=== PATIENT | male | born 2000 | race Caucasian/White ===

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

== ENCOUNTER 2022-04-29 11:43 | Emergency (ER) | payer SELFPAY ==
[~2022-04-29] VITALS: Ht 175.3 cm; Wt 106.1 kg
[2022-04-29 11:45] VITALS: BP 147/88
--- NOTE | 2022-04-29 11:54 | ED Integumentary General ---
General Chief Complaint: Skin/Wound Problems Stated Complaint: POSS ABSCESS ON BUTTOCK History of Present Illness Date Seen by Provider: Apr 29, 2022 Time Seen by Provider: 11:49 Initial Comments 21-year-old male presents with concerns for possible abscess on his left butt cheek. He reports he has had 1 in the past. Has had a lower in the butt cheek. It is very warm and tender. There is been no drainage. He has had this approximately in 2020 in which it had to be lanced and treated. He does report he is mildly nauseous. Allergies and Home Medications Allergies Coded Allergies: NKANo Known Allergies (Unverified Allergy, Mild, 07/04/08) Patient Home Medication List Home Medication List Reviewed: Yes Review of Systems Review of Systems Constitutional: No diaphoresis, No fever EENTM: no symptoms reported Respiratory: no symptoms reported Cardiovascular: no symptoms reported Gastrointestinal: No abdominal pain; nausea; No vomiting Musculoskeletal: no symptoms reported Skin: see HPI Psychiatric/Neurological: No Symptoms Reported Endocrine: No Symptoms Reported Past Jxfvzbp-Smniix-Ehikzu Hx Immunizations Up To Date PED Vaccines UTD: Yes Seasonal Allergies Seasonal Allergies: Yes Past Medical History Surgeries: Yes (tubes in ears) Respiratory: Yes Asthma Cardiac: No Neurological: No Reproductive Disorders: No Gastrointestinal: Yes Ulcer Musculoskeletal: No Endocrine: No HEENT: No Cancer: No Psychosocial: Yes ADD/ADHD, Bipolar Integumentary: No Blood Disorders: No Adverse Reaction/Blood Tranf: No Family Medical History No Pertinent Family Hx Physical Exam Vital Signs Capillary Refill : General Appearance: WD/WN, no apparent distress Cardiovascular: normal peripheral pulses, regular rate, rhythm Respiratory: lungs clear, normal breath sounds Gastrointestinal: non tender, soft Extremities: non-tender, normal inspection Skin Problem Location: other (Left buttock) Skin Problem Character: erythema, swelling, warm, other (Mild induration but no abscess noted) Progress/Results/Core Measures Progress Progress Note : Progress Note Patient with mild induration but no obvious abscess. We did discuss the labs and further evaluation but at this time with joint decision-making and felt conservative treatment would be the best. Discussed with him the need for antibiotics. He can use a warm compress. That over the next couple days it may form an abscess that could be draining boil and he would need to follow-up with his primary care provider, urgent care or return to the ER. We will treat him with Bactrim twice daily as it is likely to form an abscess. Since its in the buttock region, I will also add Flagyl 3 times a day. Patient is mildly nauseous. We will also add Zofran to help with the nausea. He can use Tylenol ibuprofen to help with the discomfort and if he develops fever. patient was stable and discharged home Departure Impression Primary Impression: Cellulitis Qualified Codes: L03.317 - Cellulitis of buttock Disposition: HOME, SELF-CARE Condition: Stable Departure-Patient Inst. [facility] [facility] [place] Primary Care Physician Patient Instructions: Cellulitis (Skin Infection), Adult ED, Bacterial Folliculitis (DC) Add. Discharge Instructions: Warm compress 2-3 times daily. Please monitor. If it forms a pustule/abscess please follow-up with your primary care provider or urgent care or return to the ER for drainage. Please take antibiotics as prescribed. You may use Tylenol or ibuprofen every 6-8 hours as needed for pain or if you develop fever. All discharge instructions reviewed with patient and/or family. Voiced understanding. Scripts Ondansetron (Ondansetron Odt) 4 Mg Tab.rapdis 4 MG PO Q6H PRN for NAUSEA/VOMITING, #20 TAB 0 Refills Prov: SONI ROCHA DO 04/29/22 Sulfamethoxazole/Trimethoprim (Bactrim Ds Tablet) 1 Each Tablet 1 EACH PO BID, #14 TAB Prov: SONI ROCHA DO 04/29/22 Metronidazole (Metronidazole) 500 Mg Tablet 500 MG PO TID, #21 TAB 0 Refills Prov: SONI ROCHA DO 04/29/22 SONI ROCHA DO Apr 29, 2022 11:54
[2022-04-29] MEDS ORDERED: METR-145 PO (12:02)
[2022-04-29] MEDS ORDERED: SULF1TAB38 PO (12:02)
[2022-04-29] MEDS ORDERED: ONDA4TAB11 PO (12:02)
== END 2022-04-29 12:04 | disposition home or self-care (01) ==
LOC: EDUNIT# 11:43 → ER FS 11:46
DX: L03.317 Cellulitis of buttock (principal)
CPT/HCPCS: 99281